=== PATIENT | female | born 1960 | race Caucasian/White ===

== ENCOUNTER → 2019-04-22 | Outpatient (CLI) | payer BC ==
[~2019-04-22] MED LIST: ABILIFY; ABILIFY10 MG PO; AMBIEN 10 MG TA10 MG PO; BACLOFEN 10MG T10 M1 PO; BUSPAR PO; CELEBREX PO; CYMBALTA60 MG PO; HYDROCODON-ACE1 EAC7 PO; MS CONTIN15 MG PO; NEURONTIN 300300 M1 PO; OXYCONTIN15 MG PO; PAXIL10 MG PO
== END ==
LOC: LAB 11:14
DX: R90.82 White matter disease, unspecified (principal); F32.9 Major depressive disorder, single episode, unspecified; E78.5 Hyperlipidemia, unspecified; J43.9 Emphysema, unspecified; Z88.0 Allergy status to penicillin

== ENCOUNTER 2019-04-25 11:50 | Emergency (ER) | payer BC ==
[~2019-04-25] VITALS: Ht 170.2 cm; Wt 73.0 kg
[2019-04-25] MEDS ORDERED: VALIUM5 MG PO (12:22)
[2019-04-25 12:49] LABS: ABSOLUTE NEUTROPHILS 2.9 thou/uL (1.4-8.2); BASOPHILS 1.1 % (0.0-2.0); EOSINOPHILS 6.8 % (0.0-3.0); HEMATOCRIT 40.7 % (37.0-47.0); LYMPHOCYTES 41.3 % (24.0-44.0); MCH 33.1 pg (26.0-34.0); MCHC 34.3 g/dL (28.0-37.0); MCV 96.4 fL (80.0-100.0); MONOCYTES 7.3 % (1.0-8.0); PLATELET COUNT 230 thou/uL (150-400); POLYS 43.5 % (36.0-66.0); RBC 4.22 mil/uL (4.20-5.00); RDW 13.2 % (10.5-14.5); WBC 6.6 thou/uL (4.0-11.0)
[2019-04-25 12:56] LABS: CALCIUM 9.3 mg/dL (8.5-10.1); CREATININE 0.8 mg/dL (0.6-1.0); POTASSIUM 4.1 mmol/L (3.5-5.1)
[2019-04-25] MEDS ORDERED: CLEOCIN HCL150 MG PO (14:14)
[2019-04-25] MEDS ORDERED: NORCO 5-325 TA1 EAC1 PO (14:14)
[2019-04-25 14:49] VITALS: BP 121/73
== END 2019-04-25 14:45 | disposition home or self-care (01) ==
LOC: ER 11:50
PROVIDERS: Emergency Medicine
DX: K11.20 Sialoadenitis, unspecified (principal); F17.210 Nicotine dependence, cigarettes, uncomplicated; Z88.1 Allergy status to other antibiotic agents; Z88.8 Allergy status to other drugs, medicaments and biological substances; Z90.710 Acquired absence of both cervix and uterus; Z98.890 Other specified postprocedural states

== ENCOUNTER → 2019-07-02 | Outpatient (CLI) | payer BC ==
[~2019-07-02] MED LIST changes: +CLEOCIN HCL150 MG PO; +NORCO 5-325 TA1 EAC1 PO; +VALIUM5 MG PO
--- NOTE | ~2019-07-02 | EEG ---
[facility] [place] [address] ELECTROENCEPHALOGRAM Name: BOO ARAMBULA Room #: REG ANNA MARIE Elan.#: [id number] Admission: 07/02/19 Attend Phys: Mj Adler MD Discharge: Date of : 56 Report #: [id number] THIS REPORT FOR: //name// CC: Ludin Adler DATE OF SERVICE: 07/02/2019 This patient is being evaluated for question of seizures. EEG was done by placing the electrode by standard 10-20 system. Both referential and sequential montages were used for recording. Background activity in this patient's EEG is about 9 Hz and 30 microvolt. It is a symmetrical activity. This patient became drowsy and that is associated with bilateral slowing and vertex sharp waves. Photic stimulation was unremarkable. Throughout the record, no active epileptiform activity was noticed. IMPRESSION: This patient's EEG does not demonstrate any active epileptiform activity. It might be mentioned that EEG can be normal in a patient with a seizure disorder. Clinical correlation is recommended. By: 1642 1749 Trever Claudio MD /nt
== END ==
LOC: NEURO 08:17
DX: G47.50 Parasomnia, unspecified (principal); G62.9 Polyneuropathy, unspecified; F41.9 Anxiety disorder, unspecified; F32.9 Major depressive disorder, single episode, unspecified

== ENCOUNTER → 2019-08-30 | Outpatient (CLI) | payer BC ==
[~2019-08-30] MED LIST changes: +KEPPRA XR500 MG PO; +LEXAPRO20 MG PO; +NORCO 10-325 T1 EACH PO; +OSPHENA60 MG PO
--- NOTE | 2019-08-30 08:52 | 2DMMODE ---
[facility] [place] [address] 2 D/M-MODE ECHOCARDIOGRAM Name: GIDEON ARAMBULASA Room #: REG Jamal#: [id number] Admission: 08/30/19 Attend Phys: Mj Adler, Discharge: Date of : 56 Report #: [id number] THIS REPORT FOR: //name// APPROVED REPORT Study performed: 08/30/2019 08:03:52 EXAM: Comprehensive 2D, Doppler, and color-flow Echocardiogram Patient Location: Out-Patient Room #: Echo lab 2 Status: routine BSA: 1.89 HR: 68 bpm BP: 126/82 mmHg Rhythm: NSR Other Information Study Quality: Good Indications CVA/TIA 2D Dimensions RVDd: 29.14 mm IVSd: 8.41 (7-11mm) LVOT Diam: 19.90 (18-24mm) LVDd: 50.96 mm PWd: 9.49 (7-11mm) Ascending Ao: 27.35 (22-36mm) LVDs: 35.41 (25-40mm) Aortic Root: 26.40 mm IVC: 17.00 mm Volumes Left Atrial Volume (Systole) Single Plane 4CH: 37.20 mL Single Plane 2CH: 31.97 mL LA ESV Index: 20.00 mL/m2 Aortic Valve AoV Peak Albino.: 1.58 m/s AO Peak Gr.: 9.92 mmHg LVOT Max P.45 mmHg LVOT Max V: 1.06 m/s PEDRO PABLO Vmax: 2.08 cm2 Mitral Valve E/A Ratio: 1.1 MV Decel. Time: 229.88 ms MV E Max Albino.: 1.26 m/s [facility] [address] [address] 2 D/M-MODE ECHOCARDIOGRAM Name: BOO ARAMBULA Room #: [facility]#: [id number] Admission: 08/30/19 Attend Phys: Mj Adler, Discharge: Date of : 56 Report #: [id number] MV A Albino.: 1.13 m/s MV PHT: 66.67 ms IVRT: 69.20 ms Pulmonary Valve PV Peak Albino.: 1.02 m/s PV Peak Gr.: 4.18 mmHg Pulmonary Vein P Vein S: 0.71 m/s P Vein A: 0.25 m/s P Vein D: 0.58 m/s P Vein A Dur.: 101.5 msec P Vein S/D Ratio: 1.22 Left Ventricle The left ventricle is normal size. There is normal LV segmental wall motion. There is normal left ventricular wall thickness. Left ventricular systolic function is normal. The left ventricular ejection fraction is within the normal range. LVEF is 55-60%. The left ventricular diastolic function is normal. Right Ventricle The right ventricle is normal size. The right ventricular systolic function is normal. Atria The left atrium size is normal. No shunting by contrast bubble injection The right atrium size is normal. Aortic Valve The aortic valve is normal in structure. No aortic regurgitation is present. There is no aortic valvular stenosis. Mitral Valve The mitral valve is normal in structure. Trace mitral regurgitation. No evidence of mitral valve stenosis. Tricuspid Valve The tricuspid valve is normal in structure. There is no tricuspid valve regurgitation noted. Pulmonic Valve The pulmonary valve is normal in structure. There is no pulmonic valvular regurgitation. Great Vessels The aortic root is normal in size. IVC is normal in size and collapses >50% with inspiration. [facility] [address] [place] [address] 2 D/M-MODE ECHOCARDIOGRAM Name: BOO ARAMBULA Room #: REG [facility]#: [id number] Admission: 08/30/19 Attend Phys: Mj Adler, Discharge: Date of : 56 Report #: [id number] Pericardium There is no pericardial effusion. <Conclusion> Left ventricular systolic function is normal. There is normal LV segmental wall motion. LVEF is 55-60%. Normal diastolic function No shunting by contrast bubble injection Pulmonary artery systolic pressure could not be reliably ascertained There is no pericardial effusion. <ELECTRONICALLY SIGNED> By: Efrain Leone MD, [facility] 08/30/1953 0 Efrain Leone MD, [facility] /INF
== END ==
LOC: CV 07:31
DX: R56.9 Unspecified convulsions (principal)

== ENCOUNTER 2019-09-18 12:59 | Emergency (ER) | payer BC ==
[~2019-09-18] VITALS: Ht 177.8 cm; Wt 72.6 kg
[~2019-09-18 12:59] MED LIST changes: -KEPPRA XR500 MG PO; -LEXAPRO20 MG PO; -NORCO 10-325 T1 EACH PO; -OSPHENA60 MG PO
[2019-09-18] MEDS ORDERED: KEPPRA XR500 MG PO (13:26)
[2019-09-18] MEDS ORDERED: NORCO 10-325 T1 EACH PO (13:27)
[2019-09-18] MEDS ORDERED: LEXAPRO20 MG PO (13:28)
[2019-09-18] MEDS ORDERED: OSPHENA60 MG PO (13:28)
[2019-09-18 13:35] LABS: ABSOLUTE NEUTROPHILS 3.3 thou/uL (1.4-8.2); BASOPHILS 1.1 % (0.0-2.0); HEMOGLOBIN 14.3 gm/dL (12.0-15.0); LYMPHOCYTES 47.4 % (24.0-44.0); MCH 33.3 pg (26.0-34.0); MCHC 34.1 g/dL (28.0-37.0); MCV 97.8 fL (80.0-100.0); MONOCYTES 5.9 % (1.0-8.0); PLATELET COUNT 275 thou/uL (150-400); POLYS 41.6 % (36.0-66.0); WBC 7.9 thou/uL (4.0-11.0)
[2019-09-18 13:36] LABS: URINE BILIRUBIN NEGATIVE (Negative); URINE BLOOD 1+ (Negative); URINE CLARITY CLEAR; URINE COLOR YELLOW; URINE GLUCOSE-RANDOM* NEGATIVE (Negative); URINE KETONES NEGATIVE (Negative); URINE LEUKOCYTES-REFLEX NEGATIVE (Negative); URINE NITRITE-REFLEX NEGATIVE (Negative); URINE PROTEIN (DIPSTICK) NEGATIVE (Negative); URINE SPECIFIC GRAVITY <= 1.005 (1.005-1.035); URINE UROBILINOGEN 0.2 E.U./dl (0.2-1.0)
[2019-09-18 13:47] LABS: CALCIUM 9.6 mg/dL (8.5-10.1); CREATININE 0.9 mg/dL (0.6-1.0); POTASSIUM 3.9 mmol/L (3.5-5.1)
[2019-09-18 13:51] LABS: SQUAMOUS 0-3 Few /LPF (0-3)
[2019-09-18 13:52] LABS: BACTERIA-REFLEX None Seen /HPF (None Seen); CASTS None Seen /LPF (None Seen); CRYSTALS None Seen /LPF (None Seen); TOTAL BILIRUBIN 0.2 mg/dL (<0.1-1.0); TOTAL PROTEIN 7.7 g/dL (6.4-8.2); URINE RBC None Seen /HPF (0-2); URINE WBC-REFLEX 0-5 Rare /HPF (0-5)
[2019-09-18 15:43] VITALS: BP 119/67
== END 2019-09-18 15:43 | disposition home or self-care (01) ==
LOC: ER 12:59
PROVIDERS: Physician Assistant
DX: G40.909 Epilepsy, unspecified, not intractable, without status epilepticus (principal); R51 Headache; Z88.1 Allergy status to other antibiotic agents; Z79.899 Other long term (current) drug therapy; Z98.890 Other specified postprocedural states; Z90.710 Acquired absence of both cervix and uterus

== ENCOUNTER → 2019-10-21 | Outpatient (CLI) | payer BC ==
[~2019-10-21] MED LIST changes: +KEPPRA XR500 MG PO; +LEXAPRO20 MG PO; +NORCO 10-325 T1 EACH PO; +OSPHENA60 MG PO
== END ==
LOC: NUC 06:42
DX: R07.9 Chest pain, unspecified (principal); F17.200 Nicotine dependence, unspecified, uncomplicated

== ENCOUNTER → 2020-08-13 | Outpatient (CLI) | payer BC | LOC: CAT 12:45 | PROVIDERS: ATTEND Family Medicine | DX: Z12.2 Encounter for screening for malignant neoplasm of respiratory organs (principal); J43.9 Emphysema, unspecified; R91.8 Other nonspecific abnormal finding of lung field; Z87.891 Personal history of nicotine dependence ==

== ENCOUNTER 2020-10-29 10:34 | Emergency (ER) | payer BC ==
[~2020-10-29] VITALS: Ht 170.2 cm; Wt 79.4 kg
[2020-10-29] MEDS ORDERED: ZPAK PO (13:43)
[2020-10-29 14:03] VITALS: BP 111/76
--- NOTE | 2020-10-29 14:53 | EKG ---
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1960 Requested By: Ovidio Dickinson Order Number: [id number] MD: Ranjan Goldsmith Measurements Intervals [place] Rate: 65 P: 52 [place]: 166 QRS: 7 QRSD: 78 T: 22 QT: 436 QTc: 454 Interpretive Statements Sinus rhythm Low voltage, precordial leads Baseline wander in lead(s) V3 No previous ECG available for comparison Electronically Signed On 10-29-2020 14:53:42 DIP BRAZIER by Ranjan Goldsmith [email or web address] <ELECTRONICALLY SIGNED> By: Ranjan Goldsmith MD, [facility] 10/29/20 1453 1216 1216 Ranjan Goldsmith MD, FACC /EPI
== END 2020-10-29 14:11 | disposition home or self-care (01) ==
LOC: ER 10:34
DX: J18.9 Pneumonia, unspecified organism (principal); G40.909 Epilepsy, unspecified, not intractable, without status epilepticus; J44.9 Chronic obstructive pulmonary disease, unspecified; Z20.822 Contact with and (suspected) exposure to COVID-19; Z98.890 Other specified postprocedural states; Z90.711 Acquired absence of uterus with remaining cervical stump; Z79.899 Other long term (current) drug therapy; Z88.1 Allergy status to other antibiotic agents

== ENCOUNTER → 2020-11-23 | Outpatient (CLI) | payer BC ==
[~2020-11-23] MED LIST changes: +ZPAK PO
== END ==
LOC: CAT 11:13
PROVIDERS: ATTEND Nurse Practitioner
DX: K42.0 Umbilical hernia with obstruction, without gangrene (principal); R19.5 Other fecal abnormalities

== ENCOUNTER → 2020-11-23 | Outpatient (CLI) | payer OTHER | LOC: CAT 08:49 | PROVIDERS: ATTEND Family Medicine | DX: Z13.6 Encounter for screening for cardiovascular disorders (principal); I25.10 Atherosclerotic heart disease of native coronary artery without angina pectoris; E78.00 Pure hypercholesterolemia, unspecified ==

== ENCOUNTER → 2020-12-21 | Outpatient (CLI) | payer BC, OTHER ==
[~2020-12-21] VITALS: Ht 170.2 cm; Wt 80.7 kg
[~2020-12-21] MED LIST changes: +CRESTOR20 MG PO; +CYMBALTA30 MG PO; +TRAMADOL 50 MG50 MG PO; +XANAX1 MG PO
[2020-12-21 10:11] VITALS: BP 117/80
[2020-12-21 12:05] LABS: HEMATOCRIT 40.6 % (37.0-47.0); HEMOGLOBIN 13.6 gm/dL (12.0-15.0); MCH 33.8 pg (26.0-34.0); MCHC 33.4 g/dL (28.0-37.0); RBC 4.02 mil/uL (4.20-5.00); RDW 13.6 % (10.5-14.5); WBC 8.2 thou/uL (4.0-11.0)
[2020-12-21 12:19] LABS: CREATININE 0.9 mg/dL (0.6-1.0); POTASSIUM 4.2 mmol/L (3.5-5.1)
--- NOTE | 2020-12-21 15:02 | EKG ---
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 : 1960 Requested By: Ignacio Martin Order Number: [id number] MD: Lonnie Armijo Measurements Intervals [place] Rate: 80 P: 60 [place]: 177 QRS: 3 QRSD: 89 T: 19 QT: 392 QTc: 453 Interpretive Statements Sinus rhythm Consider left atrial enlargement Abnormal R-wave progression, early transition Compared to ECG 10/29/2020 12:16:37 No significant changes Electronically Signed On 12-21-2020 15:02:20 CDT by Lonnie Armijo [email or web address] <ELECTRONICALLY SIGNED> By: Lonnie Armijo MD 12/21/20 1502 1254 1254 Lonnie Armijo MD /MONICA
--- NOTE | 2020-12-24 23:08 | CATHLAB ---
[facility] [place] [address] INVASIVE PROCEDURE REPORT Name: BOO ARAMBULA Room #: REG ANAISYazan Jamal#: [id number] Admission: 12/21/20 Attend Phys: Ignacio Martin Discharge: Date of : 56 Report #: [id number] THIS REPORT FOR: cc: Eugenio Centeno Andrea RNP Lammoglia, Francisco J. MD ~ APPROVED REPORT Study performed: 12/21/2020 09:23:23 Patient Details Patient Status: Out-Patient Room #: The patient is a 60 year-old female Event Personnel Ignacio Martin Blade Grader Operator, Dhruv Jones RN RN, Edyta Guy RTR Scrub, Carmen Hinkle Monitor Procedures Performed Art Access - R femoral artery* Left Heart Cath w/or w/o Coronaries [id number] [facility] [address] Initial Mod Sed Same Phys/QHP 5y [id number] Hemostasis with Manual pressure,supervision of conscius sedation Indication Positive stress test, Chest pain Procedure Narrative The Right Groin^ was infiltrated with 1% Lidocaine subcutaneous anesthesia. A PINNACLE 4FR Sheath #[id number] sheath was inserted into the . Coronary angiography was performed using coronary diagnostic catheters. The right coronary system was accessed and visualized with a JR4 catheter. The left coronary system was accessed and visualized with a JL4 catheter. The patient tolerated the procedure well and there were no complications associated with the procedure. Intraoperative Conscious Sedation Sedation start time: 1139 Case end Time: 1205 Versed 2 mg Fluoro Time: 1.20 minutes Dose: DAP 2710.80 cGycm2 446 mGy Contrast Type and Amount: Omnipaque 50 ml [facility] [address] [place] [address] INVASIVE PROCEDURE REPORT Name: BOO ARAMBULA Room #: REG CL Jamal#: [id number] Admission: 12/21/20 Attend Phys: Ignacio Peralta Discharge: Date of : 56 Report #: [id number] Coronary Angiography The patient's coronary anatomy is right dominant. Diagnostic Cath Left Main moderate caliber vessel which bifurcates into a left anterior descending and left circumflex arteries. no significant plaquing present LAD small caliber type III vessel coursing in the anterior interventricular septum giving rise to septal and diagonal branches tapering rapidly to a string like vessel terminating in the posterior aspect of the left ventricle. the is a 50% lesion in the lad proper at the bifurcation of a moderate first diagonal branch. Diagonal 1 small caliber vessel proceeding along the anterolateral wall free of significant lesions. it has a tortuous course. Circumflex moderate caliber nondominant vessel giving rise to 2 small lateral wall marginal vessels and a posterior wall branch. no high grade lesions are present OM1 small to moderate caliber vessel without significant lesions present OM2 small caliber vessel tortous course h=no high grade lesions OM3 small caliber disease free branch Right Coronary moderate caliber dominant vessel of normal origin. small atrial and a small but long rv branch arise as the rca proper coarses towards the crux of the heart. the small caliber posterior descending vessel arises. R PDA small caliber tortuous vessel without significant stenosis Left Ventriculography Left Ventriculography was not performed. Hemodynamics The aortic pressure is 148/83 mmHg with a mean of 111 mmHg. The left ventricular pressure is 145/16 mmHg with a mean of mmHg. The left ventricular end diastolic pressure is 26 mmHg. Conclusion 1. mild nonobsructive coronary arery disease 2. normal hemodynamics Recommendations [facility] [address] [place] [address] INVASIVE PROCEDURE REPORT Name: BOO ARAMBULA Room #: REG [facility]#: [id number] Admission: 12/21/20 Attend Phys: Ignacio Peralta Discharge: Date of : 56 Report #: [id number] Cardiac Risk Reduction Program Medical Therapy <ELECTRONICALLY SIGNED> By: Ignacio Martin MD 12/24/202307 07 07 Ignacio Martin MD /INF
== END | disposition home or self-care (01) ==
LOC: CATH 07:29
PROVIDERS: ATTEND Internal Medicine
DX: R07.9 Chest pain, unspecified (principal); R94.39 Abnormal result of other cardiovascular function study; I25.10 Atherosclerotic heart disease of native coronary artery without angina pectoris; E78.5 Hyperlipidemia, unspecified; J43.9 Emphysema, unspecified; F32.9 Major depressive disorder, single episode, unspecified; F41.9 Anxiety disorder, unspecified; F17.210 Nicotine dependence, cigarettes, uncomplicated; E66.9 Obesity, unspecified; Z98.890 Other specified postprocedural states; Z79.899 Other long term (current) drug therapy; Z90.710 Acquired absence of both cervix and uterus; Z88.8 Allergy status to other drugs, medicaments and biological substances

== ENCOUNTER 2021-08-17 07:51 | Emergency (ER) | payer BC, OTHER ==
[~2021-08-17] VITALS: Ht 170.2 cm; Wt 87.1 kg
[2021-08-17 08:27] LABS: URINE BILIRUBIN NEGATIVE (Negative); URINE BLOOD 1+ (Negative); URINE CLARITY CLEAR; URINE COLOR YELLOW; URINE GLUCOSE-RANDOM* NEGATIVE (Negative); URINE KETONES NEGATIVE (Negative); URINE LEUKOCYTES-REFLEX NEGATIVE (Negative); URINE NITRITE-REFLEX NEGATIVE (Negative); URINE PROTEIN (DIPSTICK) NEGATIVE (Negative); URINE UROBILINOGEN 0.2 E.U./dl (0.2-1.0)
[2021-08-17 08:33] LABS: ABSOLUTE NEUTROPHILS 3.5 thou/uL (1.4-8.2); BASOPHILS 1.1 % (0.0-2.0); EOSINOPHILS 7.7 % (0.0-3.0); HEMATOCRIT 39.5 % (37.0-47.0); HEMOGLOBIN 13.3 gm/dL (12.0-15.0); LYMPHOCYTES 29.6 % (24.0-44.0); MCH 32.1 pg (26.0-34.0); MCHC 33.6 g/dL (28.0-37.0); MCV 95.5 fL (80.0-100.0); MONOCYTES 9.2 % (1.0-8.0); PLATELET COUNT 260 thou/uL (150-400); POLYS 52.4 % (36.0-66.0); RBC 4.13 mil/uL (4.20-5.00); WBC 6.7 thou/uL (4.0-11.0)
[2021-08-17 08:41] LABS: BACTERIA-REFLEX 1-9 Few /HPF (None Seen); CASTS None Seen /LPF (None Seen); CRYSTALS None Seen /LPF (None Seen); SQUAMOUS 0-3 Few /LPF (0-3); URINE RBC 1-2 Rare /HPF (NONE SEEN); URINE WBC-REFLEX 0-5 Rare /HPF (0-5)
[2021-08-17 08:43] LABS: CALCIUM 8.7 mg/dL (8.5-10.1); CREATININE 0.7 mg/dL (0.6-1.0); POTASSIUM 4.5 mmol/L (3.5-5.1)
[2021-08-17 08:50] LABS: ALBUMIN 3.6 g/dL (3.4-5.0); TOTAL BILIRUBIN 0.3 mg/dL (0.2-1.0); TOTAL PROTEIN 7.1 g/dL (6.4-8.2)
[2021-08-17] MEDS ORDERED: HYDROCODON-ACE1 EAC7 PO (09:20)
[2021-08-17] MEDS ORDERED: NABUMETONE 500500 M2 PO (09:20)
[2021-08-17] MEDS ORDERED: VERAPAMIL SR 1120 MG PO (09:20)
[2021-08-17] MEDS ORDERED: ALPRAZOLAM ER1 MG PO (09:21)
[2021-08-17 10:09] VITALS: BP 117/68
== END 2021-08-17 10:09 | disposition home or self-care (01) ==
LOC: ER 07:51
PROVIDERS: Student in an Organized Health Care Education/Training Program
DX: K92.1 Melena (principal); R10.32 Left lower quadrant pain; F41.9 Anxiety disorder, unspecified; F32.9 Major depressive disorder, single episode, unspecified; E78.5 Hyperlipidemia, unspecified; F17.200 Nicotine dependence, unspecified, uncomplicated; Z98.890 Other specified postprocedural states; Z90.710 Acquired absence of both cervix and uterus; Z79.891 Long term (current) use of opiate analgesic; Z79.1 Long term (current) use of non-steroidal anti-inflammatories (NSAID); Z79.899 Other long term (current) drug therapy; Z88.1 Allergy status to other antibiotic agents

== ENCOUNTER → 2021-09-21 | Outpatient (CLI) | payer BC, OTHER ==
[~2021-09-21] MED LIST changes: +ALPRAZOLAM ER1 MG PO; +NABUMETONE 500500 M2 PO; +VERAPAMIL SR 1120 MG PO
== END ==
LOC: CAT 04-20 10:42
PROVIDERS: ATTEND Internal Medicine
DX: Z12.2 Encounter for screening for malignant neoplasm of respiratory organs (principal); Z87.891 Personal history of nicotine dependence; R91.1 Solitary pulmonary nodule

== ENCOUNTER 2021-10-11 16:10 | Emergency (ER) | payer BC, OTHER ==
[~2021-10-11] VITALS: Ht 170.2 cm; Wt 86.6 kg
[2021-10-11 17:24] VITALS: BP 147/78
[2021-10-11 18:51] LABS: URINE BILIRUBIN NEGATIVE (Negative); URINE BLOOD 1+ (Negative); URINE CLARITY CLEAR; URINE COLOR YELLOW; URINE GLUCOSE-RANDOM* NEGATIVE (Negative); URINE KETONES NEGATIVE (Negative); URINE LEUKOCYTES-REFLEX NEGATIVE (Negative); URINE PROTEIN (DIPSTICK) NEGATIVE (Negative); URINE UROBILINOGEN 0.2 E.U./dl (0.2-1.0)
[2021-10-11 19:03] LABS: URINE NITRITE-REFLEX POSITIVE (Negative)
[2021-10-11 19:08] LABS: SQUAMOUS 0-3 Few /LPF (0-3); URINE RBC 3-10 Few /HPF (NONE SEEN); URINE WBC-REFLEX 0-5 Rare /HPF (0-5)
[2021-10-11 19:09] LABS: BACTERIA-REFLEX 1-9 Few /HPF (None Seen); CRYSTALS None Seen /LPF (None Seen)
== END 2021-10-11 19:03 | disposition left against medical advice (07) ==
LOC: ER 16:10
PROVIDERS: Student in an Organized Health Care Education/Training Program
DX: K92.1 Melena (principal); K92.2 Gastrointestinal hemorrhage, unspecified; F41.9 Anxiety disorder, unspecified; F32.9 Major depressive disorder, single episode, unspecified; E78.5 Hyperlipidemia, unspecified; J43.9 Emphysema, unspecified; Z53.1 Procedure and treatment not carried out because of patient's decision for reasons of belief and group pressure; Z98.890 Other specified postprocedural states; Z90.710 Acquired absence of both cervix and uterus

== ENCOUNTER 2021-10-12 15:12 | Emergency (ER) | payer BC, OTHER ==
[~2021-10-12] VITALS: Ht 170.2 cm; Wt 86.6 kg
[2021-10-12 16:26] LABS: ABSOLUTE NEUTROPHILS 6.1 thou/uL (1.4-8.2); BASOPHILS 0.2 % (0.0-2.0); EOSINOPHILS 4.2 % (0.0-3.0); HEMATOCRIT 43.3 % (37.0-47.0); HEMOGLOBIN 14.5 gm/dL (12.0-15.0); LYMPHOCYTES 29.8 % (24.0-44.0); MCH 32.4 pg (26.0-34.0); MCHC 33.5 g/dL (28.0-37.0); MCV 96.7 fL (80.0-100.0); MONOCYTES 7.7 % (1.0-8.0); PLATELET COUNT 293 thou/uL (150-400); POLYS 58.1 % (36.0-66.0); RBC 4.47 mil/uL (4.20-5.00); RDW 13.9 % (10.5-14.5); WBC 10.4 thou/uL (4.0-11.0)
[2021-10-12 16:30] LABS: CALCIUM 9.3 mg/dL (8.5-10.1); CREATININE 0.7 mg/dL (0.6-1.0); POTASSIUM 3.7 mmol/L (3.5-5.1)
[2021-10-12 16:36] LABS: TOTAL BILIRUBIN 0.3 mg/dL (0.2-1.0); TOTAL PROTEIN 7.6 g/dL (6.4-8.2)
[2021-10-12 20:22] VITALS: BP 148/92
== END 2021-10-12 20:21 | disposition home or self-care (01) ==
LOC: ER 15:12
PROVIDERS: Emergency Medicine
DX: R10.9 Unspecified abdominal pain (principal); G89.29 Other chronic pain; E78.5 Hyperlipidemia, unspecified; Z88.1 Allergy status to other antibiotic agents; Z79.899 Other long term (current) drug therapy; Z98.890 Other specified postprocedural states; Z90.710 Acquired absence of both cervix and uterus; Z87.19 Personal history of other diseases of the digestive system

== ENCOUNTER → 2021-11-12 | Outpatient (CLI) | payer BC, OTHER | LOC: RAD 08:48 | PROVIDERS: ATTEND Family Medicine | DX: R14.0 Abdominal distension (gaseous) (principal); R10.30 Lower abdominal pain, unspecified ==